=== PATIENT | female | born 2000 | race Two or more races ===

== ENCOUNTER 2021-01-03 12:15 | Emergency (ER) | payer OTHER ==
[~2021-01-03] VITALS: Ht 160 cm; Wt 77.1 kg
[2021-01-03] MEDS ORDERED: SODIUM CHLORIDE 0.9% 1,000 ML IV ONE (12:30)
[2021-01-03 13:30] VITALS: BP 108/64
== END 2021-01-03 13:33 | disposition home or self-care (01) ==
LOC: ER 12:15
DX: R55 Syncope and collapse (principal)
CPT/HCPCS: 70450